=== PATIENT | female | born 1990 ===

== ENCOUNTER 2017-01-02 17:09 | Emergency (ER) | payer BC, MEDICAID, OTHER ==
[2017-01-02 17:14] VITALS: BP 122/61; PULSE 96; RESP 16; TEMP 98.2; O2SAT 100
[2017-01-02 18:12] LABS: BASO # 0.1 K/uL (0.0-0.2); BASO % 1.2 % (0.0-2.0); EOS # 0.1 K/uL (0.0-0.7); EOS % 1.5 % (0.0-4.0); HEMOGLOBIN 10.9 g/dL (12.0-16.0); LYMPH # 2.2 K/uL (1.0-4.3); LYMPH % 29.5 % (20.0-40.0); MEAN CELL VOLUME 82.6 fl (81.0-99.0); MEAN CORPUSCULAR HEMOGLOBIN 25.8 pg (27.0-31.0); MEAN CORPUSCULAR HGB CONC 31.2 g/dL (33.0-37.0); MEAN PLATELET VOLUME 9.4 fl (7.2-11.7); MONO # 0.6 K/uL (0.0-0.8); MONO % 8.2 % (0.0-10.0); NEUT # 4.4 K/uL (1.8-7.0); NEUT % 59.6 % (50.0-75.0); RBC 4.24 Mil/uL (3.80-5.20); RED CELL DISTRIBUTION WIDTH 15.9 % (11.5-14.5); WHITE BLOOD COUNT 7.4 K/uL (4.8-10.8)
[2017-01-02 18:21] LABS: BLOOD UREA NITROGEN 12 mg/dl (7-17); CALCIUM 9.1 mg/dL (8.4-10.2); GFR AFRICAN-AMERICAN > 60; GFR NON-AFRICAN AMERICAN > 60
--- NOTE | 2017-01-02 18:23 | ED PDOC ---
HPI: Headache Time Seen by Provider: 01/02/17 17:19 Chief Complaint (Nursing): Headache Chief Complaint (Provider): Headache, cramps History Per: Patient History/Exam Limitations: no limitations Onset/Duration Of Symptoms: Days Current Symptoms Are (Timing): Still Present Severity: Moderate Additional Complaint(s): The pt is a 26yo female, presents to ED for evaluation of headache present for the past day as well as lower abdominal cramping present for the past 2 days. 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 Pt additionally states this isnt the worst headache of her life and has been taking Advil with relief. As for he abdominal cramps, she reports they are intermittent and severe today. She reports her LMP was 1 month ago, denies any abnormal vaginal bleeding, dysuria, back pain. She offers no additional medical complaints. Past Medical History Reviewed: Historical Data, Nursing Documentation, Vital Signs Vital Signs: Last Vital Signs Temp 98.2 F 01/02/17 17:12 Pulse 96 H 01/02/17 17:12 Resp 16 01/02/17 17:12 BP 122/61 01/02/17 17:12 Pulse Ox 100 01/02/17 17:12 - Medical History PMH: No Chronic Diseases - Surgical History Surgical History: No Surg Hx - Family History Family History: States: Unknown Family Hx - Social History Current smoker - smoking cessation education provided: No Alcohol: None Drugs: Denies - Immunization History Hx Tetanus Toxoid Vaccination: No Hx Influenza Vaccination: No Hx Pneumococcal Vaccination: No - Home Medications Home Medications: Ambulatory Orders Medication Instructions Recorded No Known Home Med 01/02/17 - Allergies Allergies/Adverse Reactions: Allergies Allergy/AdvReac Type Severity Reaction Status Date / Time No Known Allergies Allergy Unverified 12/25/13 20:29 Review of Systems ROS Statement: Except As Marked, All Systems Reviewed And Found Negative Gastrointestinal: Positive for: Abdominal Pain Genitourinary Female: Negative for: Dysuria, Vaginal Bleeding Musculoskeletal: Negative for: Back Pain Neurological: Positive for: Headache Physical Exam - Reviewed Nursing Documentation Reviewed: Yes Vital Signs Reviewed: Yes - Physical Exam Appears: Positive for: Well, Non-toxic, No Acute Distress Head Exam: Positive for: ATRAUMATIC, NORMAL INSPECTION, NORMOCEPHALIC Skin: Positive for: Normal Color, Warm, DRY Eye Exam: Positive for: Normal appearance Neck: Positive for: Normal, Supple Cardiovascular/Chest: Positive for: Regular Rate, Rhythm Respiratory: Positive for: Normal Breath Sounds. Negative for: Respiratory Distress Gastrointestinal/Abdominal: Positive for: Tenderness (suprapubic tenderness) Back: Positive for: Normal Inspection Extremity: Positive for: Normal ROM Neurologic/Psych: Positive for: Alert, Oriented - Laboratory Results Result Diagrams: 01/02/17 18:00 01/02/17 18:00 - ECG O2 Sat by Pulse Oximetry: 100 (RA) Pulse Ox Interpretation: Normal Medical Decision Making Medical Decision Making: Time: 1730 Impression: Lower abdominal pain, consider UTI, complication, ovarian cyst, fibroids Headache based on exam is most likely tension headache Plan: -- UDip -- UPreg -- CT Head -- Tylenol 950 mg PO -- US Transvaginal Reassess Scribe Attestation: Documented by Daiana Thomas acting as a scribe for Betina Beltre MD. Provider Attestation: All medical record entries made by the Scribe were at my direction and personally dictated by me. I have reviewed the chart and agree that the record accurately reflects my personal performance of the history, physical exam, medical decision making, and the department course for this patient. I have also personally directed, reviewed, and agree with the discharge instructions and disposition. Disposition - Clinical Impression Clinical Impression: Pelvic pain, Abdominal pain affecting , Headache, UTI (urinary tract infection) - Patient ED Disposition Is Patient to be Admitted: Transfer of Care - Disposition Disposition: Transfer of Care Disposition Time: 19:00 Condition: FAIR Patient Signed Over To: Tian Ruiz Handoff Comments: pending imaging studies
--- NOTE | 2017-01-02 19:00 | ED PDOC ---
- Laboratory Results Result Diagrams: 01/02/17 18:00 01/02/17 18:00 - ECG O2 Sat by Pulse Oximetry: 100 (RA) Pulse Ox Interpretation: Normal Medical Decision Making Medical Decision Making: Receiving sign out: Pt signed out to me by Dr. Beltre pending US results. Scribe Attestation: Documented by Daiana Thomas acting as a scribe for Tian Ruiz MD. Provider Attestation: All medical record entries made by the Scribe were at my direction and personally dictated by me. I have reviewed the chart and agree that the record accurately reflects my personal performance of the history, physical exam, medical decision making, and the department course for this patient. I have also personally directed, reviewed, and agree with the discharge instructions and disposition. Disposition - Clinical Impression Clinical Impression: Pelvic pain, Abdominal pain affecting , Headache, UTI (urinary tract infection) - POA Present On Arrival: None - Disposition Referrals: [facility]Outside] [facility] [Outside] Disposition: Routine/Home Disposition Time: 20:26 Condition: FAIR Prescriptions: Nitrofurantoin Macrocrystals [Macrobid] 100 mg PO BID 5 Days Multivit/Folic Acid/I [ Plus] 1 tab PO DAILY #30 tab Instructions: Abdominal Pain in (ED), Urinary Tract Infection in (ED) Progress Note - Review of Symptoms Events since last encounter: Time: 2025 US OB Transvaginal IMPRESSION: Intrauterine gestational sac with 2 yolk sacs but no pole. Lack of pole could be due to early dates and the findings are compatible with early twin gestation. Recommend close clinical and if necessary sonographic followup to confirm viability.
--- NOTE | 2017-01-03 10:54 | US ---
Pelvic ultrasound History: Lower pelvic pain. Comparison: 07/16/2009. Technique: Trans vaginal ultrasonography evaluation. Findings: The uterus measures 8.4 x 6.7 x 5.3 centimeters. The uterus is anteverted. The cervix appears unremarkable and measures 4.5 centimeters. The cervix is closed. Intrauterine gestational sac identified. Mean sac diameter is 0.81 centimeters. Two yolk sacs identified. No pole seen. Yolk sac measures 0.14 and 0.16 centimeters. No significant free fluid in the cul-de-sac. Right ovary measures 3.6 by 1.7 x 2 centimeters. Left ovary measures 3.3 x 3.4 x 2.5 centimeters. Possible involuting corpus luteum cyst in the left ovary. Follow-up can be obtained if indicated. Impression: Intrauterine gestational sac with mean sac diameter of 0.81 centimeters. Two yolk sacs identified. No pole seen. Close interval follow-up recommended. Follow-up beta HCG levels also recommended. No ovarian torsion of the time of evaluation. Possible corpus luteum involuting cyst in the left ovary. Followup recommended. Please note that this report is in general agreement with the preliminary report provided by [facility].
== END 2017-01-02 20:34 | disposition home or self-care (01) ==
LOC: H.ER 17:09
DX: O23.40 Unspecified infection of urinary tract in pregnancy, unspecified trimester (principal); R51 Headache

== ENCOUNTER 2018-05-07 19:53 | Emergency (ER) | payer BC ==
[2018-05-07 20:35] VITALS: BP 122/75; PULSE 90; RESP 16; TEMP 98.3; O2SAT 100
--- NOTE | 2018-05-07 21:04 | ED PDOC ---
HPI: Female Pain Time Seen by Provider: 05/07/18 20:48 Chief Complaint (Nursing): Abdominal Pain Chief Complaint (Provider): ; pain, spotting History Per: Patient History/Exam Limitations: no limitations Onset/Duration Of Symptoms: Hrs (2), Waxing/Waning Current Symptoms Are (Timing): Still Present Quality Of Discomfort: Cramping, "Pain" Additional Complaint(s): 27 y/o female, approximately 13 weeks gestation, presents for evaluation of lower pelvic cramping with vaginal spotting x 2 hours. Denies fever, nausea/vomiting, chest pain, shortness of breath, palpitations, changes in bowel movements, urinary symptoms, vaginal discharge Abnormal Vaginal Bleeding: Yes Last Menstral Period: 02/02/18 : 3 Para: 1 Miscarriage: 1 Past Medical History Reviewed: Historical Data, Nursing Documentation, Vital Signs Vital Signs: Last Vital Signs Temp 98.3 F 05/07/18 20:31 Pulse 90 05/07/18 20:31 Resp 16 05/07/18 20:31 BP 122/75 05/07/18 20:31 Pulse Ox 100 05/07/18 20:31 - Medical History PMH: No Chronic Diseases - Surgical History Surgical History: - Family History Family History: States: Unknown Family Hx - Living Arrangements Living Arrangements: With Family - Immunization History Hx Tetanus Toxoid Vaccination: No Hx Influenza Vaccination: No Hx Pneumococcal Vaccination: No - Home Medications Home Medications: Ambulatory Orders Medication Instructions Recorded Nitrofurantoin Macrocrystals 100 mg PO BID 5 Days cap 01/02/17 [Macrobid] Multivit/Folic Acid/I 1 tab PO DAILY #30 tab 01/02/17 [ Plus] - Allergies Allergies/Adverse Reactions: Allergies Allergy/AdvReac Type Severity Reaction Status Date / Time No Known Allergies Allergy Verified 05/07/18 20:31 Review of Systems ROS Statement: Except As Marked, All Systems Reviewed And Found Negative Genitourinary Female: Positive for: Vaginal Bleeding, Pelvic Pain Physical Exam - Reviewed Nursing Documentation Reviewed: Yes Vital Signs Reviewed: Yes - Physical Exam Appears: Positive for: Well, Non-toxic, No Acute Distress Head Exam: Positive for: ATRAUMATIC, NORMAL INSPECTION, NORMOCEPHALIC Skin: Positive for: Normal Color Eye Exam: Positive for: Normal appearance ENT: Positive for: Normal ENT Inspection Cardiovascular/Chest: Positive for: Regular Rate, Rhythm Respiratory: Positive for: Normal Breath Sounds Gastrointestinal/Abdominal: Positive for: Bowel Sounds, Soft, Tenderness (suprapubic, LLQ) Pelvic Exam: Positive for: External Exam Normal, Speculum Exam Normal, No Cerv. Motion Tender, Other (exam senior ios developer Chandni Banks RN). Negative for: Active Bleeding, Blood Back: Positive for: Normal Inspection Extremity: Positive for: Normal ROM Neurologic/Psych: Positive for: Alert, Oriented (x3) - Laboratory Results Result Diagrams: 05/07/18 21:40 05/07/18 21:40 - ECG O2 Sat by Pulse Oximetry: 100 - Progress ED Course And Treament: labs, urine, OB u/s, tylenol PO OBSTETRICAL ULTRASOUND INDICATION: OB screening. Vaginal spotting. FINDINGS: A single live intrauterine gestation was identified with a heart rate of 156 bpm. The placenta is anterior. motion and cardiac motion were identified. The cervix is closed, measuring 3.9 cm in length. The fetus was in a variable position. BIOMETRIC MEASUREMENTS BPD 2.2 cm HC 7.8 cm AC 6.6 cm FL 1.1 cm IMPRESSION: 1. Single live fetus based on today's measurements at 13 weeks 2 days, with a heart rate of 156 bpm. 2. No gross abnormalities. Patient educated on findings, discharged with instructions to follow up advanced manufacturing engineer within 2-3 days Advised Tylenol/warm compresses PRN pain Return precautions given Disposition - Clinical Impression Clinical Impression: Abdominal pain during , Vaginal bleeding during - Patient ED Disposition Is Patient to be Admitted: No Counseled Patient/Family Regarding: Studies Performed, Diagnosis, Need For Followup - Disposition Disposition: Routine/Home Disposition Time: 00:16 Condition: IMPROVED Instructions: Bleeding With , Round Ligament Pain Forms: [facility] (Slovenian)
[2018-05-07 21:55] LABS: BASO # 0.1 K/uL (0.0-0.2); BASO % 1.2 % (0.0-2.0); EOS # 0.1 K/uL (0.0-0.7); EOS % 0.7 % (0.0-4.0); HEMOGLOBIN 10.2 g/dL (12.0-16.0); LYMPH # 2.3 K/uL (1.0-4.3); LYMPH % 23.1 % (20.0-40.0); MEAN CELL VOLUME 80.7 fl (81.0-99.0); MEAN CORPUSCULAR HEMOGLOBIN 26.4 pg (27.0-31.0); MEAN CORPUSCULAR HGB CONC 32.7 g/dL (33.0-37.0); MEAN PLATELET VOLUME 9.5 fl (7.2-11.7); MONO # 0.8 K/uL (0.0-0.8); MONO % 7.7 % (0.0-10.0); NEUT # 6.8 K/uL (1.8-7.0); NEUT % 67.3 % (50.0-75.0); RBC 3.87 Mil/uL (3.80-5.20); RED CELL DISTRIBUTION WIDTH 17.3 % (11.5-14.5); WHITE BLOOD COUNT 10.1 K/uL (4.8-10.8)
[2018-05-07 22:12] LABS: ALBUMIN 4.2 g/dL (3.5-5.0); ALT/SGPT 21 U/L (9-52); AST/SGOT 24 U/L (14-36); BLOOD UREA NITROGEN 9 mg/dl (7-17); GFR NON-AFRICAN AMERICAN > 60
--- NOTE | 2018-05-08 11:31 | US ---
Date of service: 05/07/2018 PROCEDURE: OB Pelvic Ultrasound HISTORY: ; pain, spotting LMP: 02/02/2018 COMPARISON: None available. FINDINGS: UTERUS: Gestational sac: Single live intrauterine fetus in variable presentation. BPD: 2.2 cm corresponding to 13 weeks and 4 days of gestational age. HC: 7.8 cm corresponding to 13 weeks and 2 days of gestational age. AC: 6.6 cm corresponding to 13 weeks and 2 days of gestational age. FL: 1.1 cm corresponding to 13 weeks and 1 day of gestational age. Heart rate: 156 bpm. age (Ultrasound estimated): 13 weeks and 2 days Lexie-gestational hemorrhage: None. Date of delivery (Ultrasound estimated) : 11/10/2018 Placenta is anterior. CERVIX: Measures 3.9 cm. Long and closed. No cervical abnormality seen. RIGHT OVARY: Not visualized. LEFT OVARY: Not visualized. FREE FLUID: None. OTHER FINDINGS: None. IMPRESSION: Single live intrauterine gestation with mean gestational age of 13 weeks and 2 days. The estimated date of delivery by ultrasound is 11/10/2018. The ultrasound dates correspond with the clinical dates. A preliminary report was provided by [email or web address].
== END 2018-05-08 00:35 | disposition home or self-care (01) ==
LOC: H.ER 19:53
DX: O20.9 Hemorrhage in early pregnancy, unspecified (principal); O26.91 Pregnancy related conditions, unspecified, first trimester; R10.2 Pelvic and perineal pain; Z3A.13 13 weeks gestation of pregnancy